=== PATIENT | female | born 1995 | race Caucasian/White ===

== ENCOUNTER 2017-10-26 15:05 | Emergency (ER) | payer OTHER ==
[~2017-10-26] VITALS: Ht 170.2 cm; Wt 81.6 kg
[2017-10-26 15:16] VITALS: Ht 170.2 cm; Wt 81.6 kg
[2017-10-26 18:29] VITALS: BP 135/71
== END 2017-10-26 18:29 | disposition home or self-care (01) ==
LOC: ED 15:05
DX: J20.9 Acute bronchitis, unspecified (principal)
CPT/HCPCS: 87804; Q0162

== ENCOUNTER 2017-11-05 15:40 | Emergency (ER) | payer OTHER ==
[~2017-11-05] VITALS: Ht 170.2 cm; Wt 81.6 kg
[2017-11-05 19:01] VITALS: BP 122/68
== END 2017-11-05 19:02 | disposition home or self-care (01) ==
LOC: ED 15:40
DX: J20.9 Acute bronchitis, unspecified (principal); J45.901 Unspecified asthma with (acute) exacerbation; G80.9 Cerebral palsy, unspecified
CPT/HCPCS: J7613

== ENCOUNTER 2018-01-10 08:41 | Emergency (ER) | payer OTHER ==
[~2018-01-10] VITALS: Ht 170.2 cm; Wt 77.6 kg
[2018-01-10 08:55] VITALS: Ht 170.2 cm; Wt 77.6 kg
[2018-01-10 10:48] LABS: UA SPECIFIC GRAVITY 1.025 (1.005-1.035); microscopic required? YES; urine erythrocyte NEGATIVE (NEGATIVE)
[2018-01-10 11:30] VITALS: BP 118/82
== END 2018-01-10 11:30 | disposition home or self-care (01) ==
LOC: ED 08:41
PROVIDERS: Emergency Medicine
DX: O23.41 Unspecified infection of urinary tract in pregnancy, first trimester (principal); Z3A.01 Less than 8 weeks gestation of pregnancy

== ENCOUNTER 2018-02-21 20:06 | Emergency (ER) | payer OTHER ==
[~2018-02-21] VITALS: Ht 170.2 cm; Wt 75.7 kg
[2018-02-21 20:37] VITALS: Ht 170.2 cm; Wt 75.7 kg
[2018-02-21 23:24] VITALS: BP 121/84
== END 2018-02-21 23:24 | disposition home or self-care (01) ==
LOC: ED 20:06
DX: S93.401A Sprain of unspecified ligament of right ankle, initial encounter (principal); V87.8XXA Person injured in other specified noncollision transport accidents involving motor vehicle (traffic), initial encounter; Y93.55 Activity, bike riding; Y92.488 Other paved roadways as the place of occurrence of the external cause; Y99.8 Other external cause status